=== PATIENT | female | born 1975 | race Two or more races ===

== ENCOUNTER → 2017-07-07 | Outpatient (REF) | payer OTHER ==
[2017-07-07 13:40] LABS: BASO # 0.1 10^3/uL (0.0-0.2); BASO % 0.6 % (0.0-1.0); EOS # 0.1 10^3/uL (0.0-0.50); EOS % 1.1 % (0.0-3.0); IMMATURE GRANULOCYTE % 0.2 % (0-0); LYMPH # 2.9 10^3/uL (1.5-4.5); LYMPH % 32.3 % (24.0-44.0); MEAN CORPUSCULAR HEMOGLOBIN 32.8 pg (27.0-33.0); MEAN CORPUSCULAR HGB CONC 33.2 g/dl (32.0-36.5); MEAN CORPUSCULAR VOLUME 98.9 fl (80.0-96.0); MONO # 0.6 10^3/uL (0.0-0.8); MONO % 6.6 % (0.0-5.0); NEUTROPHILS # 5.3 10^3/uL (1.8-7.7); NEUTROPHILS % 59.2 % (36.0-66.0); PLATELET COUNT, AUTOMATED 284 10^3/uL (150-450); RED CELL DISTRIBUTION WIDTH 12.4 % (11.5-14.5); WHITE BLOOD COUNT 8.9 10^3/uL (4.0-10.0)
[2017-07-07 14:07] LABS: ALBUMIN 4.4 GM/DL (3.2-5.2); ALBUMIN/GLOBULIN RATIO 1.33 (1.00-1.93); ALKALINE PHOSPHATASE 65 U/L (45-117); ALT/SGPT 64 U/L (12-78); ANION GAP 8 MEQ/L (8-16); AST/SGOT 40 U/L (7-37); BILIRUBIN,TOTAL 0.4 MG/DL (0.2-1.0); BLOOD UREA NITROGEN 15 MG/DL (7-18); CALCIUM LEVEL 9.2 MG/DL (8.5-10.1); CARBON DIOXIDE LEVEL 30 MEQ/L (21-32); CHLORIDE LEVEL 101 MEQ/L (98-107); CHOLESTEROL LEVEL 262 MG/DL (<200); CREATININE FOR GFR 0.63 MG/DL (0.55-1.02); GLOMERULAR FILTRATION RATE > 60.0 (>58); GLUCOSE, FASTING 79 MG/DL (70-105); POTASSIUM SERUM 4.4 MEQ/L (3.5-5.1); SODIUM LEVEL 139 MEQ/L (136-145); TOTAL PROTEIN 7.7 GM/DL (6.4-8.2); TRIGLYCERIDES LEVEL 153 MG/DL (<150)
== END ==
LOC: M SFHCADAM 11:06
PROVIDERS: ATTEND Family Medicine
DX: Z00.00 Encounter for general adult medical examination without abnormal findings (principal)

== ENCOUNTER → 2018-12-01 | Outpatient (REF) | payer OTHER ==
[2018-12-01 13:17] LABS: BASO # 0.1 10^3/uL (0.0-0.2); BASO % 0.5 % (0.0-1.0); EOS # 0.1 10^3/uL (0.0-0.50); EOS % 0.9 % (0.0-3.0); HEMATOCRIT 46.6 % (36.0-47.0); HEMOGLOBIN 15.4 g/dl (12.0-15.5); LYMPH # 2.8 10^3/uL (1.5-4.5); LYMPH % 24.6 % (24.0-44.0); MEAN CORPUSCULAR HEMOGLOBIN 33.1 pg (27.0-33.0); MEAN CORPUSCULAR VOLUME 100.2 fl (80.0-96.0); MONO # 0.7 10^3/uL (0.0-0.8); NEUTROPHILS # 7.6 10^3/uL (1.8-7.7); NEUTROPHILS % 67.6 % (36.0-66.0); PLATELET COUNT, AUTOMATED 319 10^3/uL (150-450); RED BLOOD COUNT 4.65 10^6/uL (4.00-5.40); WHITE BLOOD COUNT 11.2 10^3/uL (4.0-10.0)
[2018-12-01 13:46] LABS: ALBUMIN 4.2 GM/DL (3.2-5.2); ALT/SGPT 26 U/L (12-78); BILIRUBIN,TOTAL 0.5 MG/DL (0.2-1.0); BLOOD UREA NITROGEN 15 MG/DL (7-18); CALCIUM LEVEL 9.2 MG/DL (8.5-10.1); CARBON DIOXIDE LEVEL 29 MEQ/L (21-32); CHLORIDE LEVEL 103 MEQ/L (98-107); CHOLESTEROL LEVEL 248 MG/DL (<200); CHOLESTEROL RISK RATIO 3.061 (<5); CREATININE FOR GFR 0.74 MG/DL (0.55-1.30); FREE T4 1.07 NG/DL (0.76-1.46); GLOMERULAR FILTRATION RATE > 60.0 (>58); GLUCOSE, FASTING 100 MG/DL (70-100); HDL CHOLESTEROL 81 MG/DL (>40); LDL CHOLESTEROL 156 MG/DL (<100); NON-HDL-C 167 MG/DL; POTASSIUM SERUM 4.6 MEQ/L (3.5-5.1); SODIUM LEVEL 138 MEQ/L (136-145); THYROID STIMULATING HORMONE 0.498 uIU/ML (0.358-3.740); TOTAL PROTEIN 7.9 GM/DL (6.4-8.2); TRIGLYCERIDES LEVEL 54 MG/DL (<150)
== END ==
LOC: M SFHCADAM 09:13
PROVIDERS: ATTEND Family Medicine
DX: Z00.00 Encounter for general adult medical examination without abnormal findings (principal)

== ENCOUNTER → 2019-12-29 | Outpatient (CLI) | payer OTHER ==
[~2019-12-29] MED LIST: LOSA50TA88 PO; MULTCAP PO; NICO7DIS24 TD; QC F0.52 PO
== END ==
LOC: M LABSMTC 10:00
PROVIDERS: ATTEND Anesthesiology
DX: Z01.818 Encounter for other preprocedural examination (principal); Z11.59 Encounter for screening for other viral diseases
CPT/HCPCS: C9803; U0003

== ENCOUNTER 2020-01-01 06:25 | Day surgery (SDC) | payer OTHER ==
[~2020-01-01] VITALS: Ht 172.7 cm; Wt 74.8 kg
[~2020-01-01 06:25] MED LIST changes: +NS 1,000 ML IV ONE
[2020-01-01] MEDS ORDERED: LIDOCAINE 2% 100MG/5ML SDV (FOR ANES.) As Ordered ONE (07:34)
[2020-01-01] MEDS ORDERED: propofoL 500 MG/50 ML VIAL As Ordered ONE (07:34)
[2020-01-01 08:02] VITALS: BP 129/73
--- NOTE | 2020-01-01 08:14 | ROOR ---
Patient Name: Arleen Holder Procedure Date: 01/01/2020 7:32 AM Date of : 1975 Age: 44 Room: [facility] Gender: Female Note Status: Finalized Procedure: Colonoscopy Indications: Screening patient at increased risk: Family history of 1st-degree relative with colorectal cancer at age 60 years (or older) Providers: Abdoul Segovia MD Referring MD: Erum RODRIGUEZ DO Requesting Provider: Medicines: Monitored Anesthesia Care Complications: No immediate complications. Procedure: Pre-Anesthesia Assessment: - Prior to the procedure, a History and Physical was performed, and patient medications and allergies were reviewed. The patient is competent. The risks and benefits of the procedure and the sedation options and risks were discussed with the patient. All questions were answered and informed consent was obtained. Patient identification and proposed procedure were verified by the physician, the nurse and the anesthesiologist in the procedure room. Mental Status Examination: alert and oriented. Airway Examination: normal oropharyngeal airway and neck mobility. Respiratory Examination: clear to auscultation. CV Examination: normal. Prophylactic Antibiotics: The patient does not require prophylactic antibiotics. Prior Anticoagulants: The patient has taken no previous anticoagulant or antiplatelet agents. ASA Grade Assessment: II - A patient with mild systemic disease. After reviewing the risks and benefits, the patient was deemed in satisfactory condition to undergo the procedure. The anesthesia plan was to use monitored anesthesia care (MAC). Immediately prior to administration of medications, the patient was re-assessed for adequacy to receive sedatives. The heart rate, respiratory rate, oxygen saturations, blood pressure, adequacy of pulmonary ventilation, and response to care were monitored throughout the procedure. The physical status of the patient was re-assessed after the procedure. The Colonoscope was introduced through the anus and advanced to the terminal ileum, with identification of the appendiceal orifice and IC valve. The colonoscopy was performed without difficulty. The patient tolerated the procedure well. The quality of the bowel preparation was good. The terminal ileum, ileocecal valve, appendiceal orifice, and rectum were photographed. Scope insertion time was 4 minutes. Scope withdrawal time was 10 minutes. The total duration of the procedure was 14 minutes. Findings: Hemorrhoids were found on perianal exam. The terminal ileum appeared normal. Two sessile polyps were found in the ascending colon. The polyps were 5 to 6 mm in size. These polyps were removed with a cold snare. Resection and retrieval were complete. Verification of patient identification for the specimen was done by the physician and nurse using the patient's name, date and medical record number. Estimated blood loss was minimal. A 5 mm polyp was found in the recto-sigmoid colon. The polyp was sessile. The polyp was removed with a cold snare. Resection and retrieval were complete. Multiple small and large-mouthed diverticula were found from sigmoid to transverse colon. There was no evidence of diverticular bleeding. Non-bleeding external and internal hemorrhoids were found during retroflexion. The hemorrhoids were medium-sized. Impression: - Hemorrhoids found on perianal exam. - The examined portion of the ileum was normal. - Two 5 to 6 mm polyps in the ascending colon, removed with a cold snare. Resected and retrieved. - One 5 mm polyp at the recto-sigmoid colon, removed with a cold snare. Resected and retrieved. - Moderate diverticulosis from sigmoid to transverse colon. There was no evidence of diverticular bleeding. - Non-bleeding external and internal hemorrhoids. Recommendation: - Patient has a contact number available for emergencies. The signs and symptoms of potential delayed complications were discussed with the patient. Return to normal activities tomorrow. Written discharge instructions were provided to the patient. - High fiber diet. - Continue present medications. - Preparation H ointment: Apply externally daily for 5 days. - Use fiber, for example Citrucel, Fibercon, Konsyl or Metamucil. - Await pathology results. - Repeat colonoscopy in 3 - 5 years for surveillance based on pathology results. - Telephone GI clinic for pathology results in 2 weeks. - Return to primary care physician. Abdoul Segovia MD Abdoul Segovia MD 01/01/2020 8:13:46 AM Electronically signed by Abdoul Segovia MD Number of Addenda: 0 Note Initiated On: 01/01/2020 7:32 AM Estimated Blood Loss: Estimated blood loss was minimal.
== END 2020-01-01 08:32 | disposition home or self-care (01) ==
LOC: M OPP 06:25
PROVIDERS: ATTEND Internal Medicine Gastroenterology
DX: Z12.11 Encounter for screening for malignant neoplasm of colon (principal); Z80.0 Family history of malignant neoplasm of digestive organs; K63.5 Polyp of colon; K64.8 Other hemorrhoids; K57.30 Diverticulosis of large intestine without perforation or abscess without bleeding; I10 Essential (primary) hypertension; Z79.899 Other long term (current) drug therapy; F17.210 Nicotine dependence, cigarettes, uncomplicated

== ENCOUNTER → 2020-01-03 | Outpatient (REF) | payer OTHER ==
[~2020-01-03] MED LIST changes: -NS 1,000 ML IV ONE
[2020-01-03 11:37] LABS: FREE T4 1.13 NG/DL (0.76-1.46); THYROID STIMULATING HORMONE 0.582 uIU/ML (0.358-3.740)
[2020-01-03 13:39] LABS: HCG, SERUM QUALITATIVE NEGATIVE (NEGATIVE)
[2020-01-04 17:56] LABS: FOLLICLE STIMULATING HORMONE 1.8 mIU/mL; LUTEINIZING HORMONE 1.9 mIU/mL
== END ==
LOC: M PLALAB 09:31
PROVIDERS: ATTEND Advanced Practice Midwife
DX: N92.6 Irregular menstruation, unspecified (principal)

== ENCOUNTER → 2020-01-23 | Outpatient (CLI) | payer OTHER ==
--- NOTE | 2020-01-23 17:30 | REPMRS ---
Patient History The patient states she had a clinical breast exam in December 2019. Patient is nulliparous. Family history of breast cancer at age 45 in paternal aunt, ovarian cancer at age 40 and colorectal cancer at age 60 in mother. 3D TOMOSYNTHESIS WAS PERFORMED. The [facility] lifetime risk for breast cancer is 19.6%. VOLPARA DERIAN B. Digital Woman Screen Mammo: January 23, 2020 - Exam #: [id number] Bilateral CC and MLO view(s) were taken. Technologist: Tamia Eduardo, Technologist No prior studies available for comparison. FINDINGS: The breast tissue is heterogeneously dense. This may lower the sensitivity of mammography. There is a moderate amount of residual fibroglandular tissue which is fairly symmetric. There is no dominant mass, areas of architectural distortion, or clustered microcalcification typical of malignancy. Assessment: BI-RADS/ACR category 1 mammogram. Negative Mammogram. Recommendation Routine screening mammogram in 1 year (for women over age 40). This mammogram was interpreted with the aid of an FDA-approved computer-aided dectection system. Electronically Signed By: Rivera Moreland MD 01/23/20 [id number]
--- NOTE | 2020-01-24 06:01 | REP ---
REASON: Metrorrhagia. PRIORS: None. Transvesical imaging only was obtained. The lack of transvaginal imaging is unknown to me. The uterus measures 8.6 x 3.1 x 5.2 cm. The parenchymal echo pattern is normal. The endometrial echo complex is smooth and unremarkable appearing, measuring 1.1 cm in its greatest thickness. There is no free fluid in the cul-de-sac. Right ovary measures 2.7 x 1.2 x 2.2 cm and is within normal limits. Left ovary measures 2.9 x 1.8 x 1.8 cm and is within normal limits. Urinary bladder measures 13 x 8 x 10 cm. IMPRESSION: Normal pelvic ultrasound.
== END ==
LOC: M WHC 14:55
PROVIDERS: ATTEND Advanced Practice Midwife
DX: Z12.31 Encounter for screening mammogram for malignant neoplasm of breast (principal); N92.6 Irregular menstruation, unspecified; Z80.41 Family history of malignant neoplasm of ovary

== ENCOUNTER → 2020-09-03 | Outpatient (REF) | payer OTHER ==
[2020-09-03 13:46] LABS: CHOLESTEROL RISK RATIO 3.12 (<5)
== END ==
LOC: M SFHCADAM 10:54
PROVIDERS: ATTEND Family Medicine
DX: Z00.00 Encounter for general adult medical examination without abnormal findings (principal)

== ENCOUNTER → 2021-05-08 | Outpatient (CLI) | payer OTHER | LOC: M PLARAD 07:41 | PROVIDERS: ATTEND Family Medicine | DX: R51.9 Headache, unspecified (principal); Z53.9 Procedure and treatment not carried out, unspecified reason ==

== ENCOUNTER → 2021-06-07 | Outpatient (CLI) | payer OTHER ==
[2021-06-07 12:50] LABS: BASO # 0.1 10^3/uL (0.0-0.2); BASO % 0.5 % (0.0-1.0); EOS # 0.1 10^3/uL (0.0-0.5); EOS % 0.7 % (0.0-3.0); HEMATOCRIT 48.8 % (36.0-47.0); HEMOGLOBIN 15.9 g/dl (12.0-15.5); LYMPH # 2.6 10^3/uL (1.5-5.0); LYMPH % 26.3 % (24.0-44.0); MEAN CORPUSCULAR HEMOGLOBIN 32.1 pg (27.0-33.0); MEAN CORPUSCULAR HGB CONC 32.6 g/dl (32.0-36.5); MEAN CORPUSCULAR VOLUME 98.4 fl (80.0-96.0); MONO # 0.7 10^3/uL (0.0-0.8); MONO % 6.9 % (2.0-8.0); NEUTROPHILS # 6.5 10^3/uL (1.5-8.5); NEUTROPHILS % 65.3 % (36.0-66.0); PLATELET COUNT, AUTOMATED 253 10^3/uL (150-450); RED BLOOD COUNT 4.96 10^6/uL (4.00-5.40)
[2021-06-07 13:31] LABS: ALBUMIN 4.4 GM/DL (3.2-5.2); ALT/SGPT 32 U/L (12-78); BILIRUBIN,TOTAL 0.8 MG/DL (0.2-1.0); BLOOD UREA NITROGEN 14 MG/DL (7-18); CARBON DIOXIDE LEVEL 30 MEQ/L (21-32); CHLORIDE LEVEL 101 MEQ/L (98-107); CHOLESTEROL LEVEL 253 MG/DL (<200); CHOLESTEROL RISK RATIO 2.842 (<5); CREATININE FOR GFR 0.91 MG/DL (0.55-1.30); GLOMERULAR FILTRATION RATE > 60.0 (>58); GLUCOSE, FASTING 100 MG/DL (70-100); HDL CHOLESTEROL 89 MG/DL (>40); LDL CHOLESTEROL 137 MG/DL (<100); NON-HDL-C 164 MG/DL; POTASSIUM SERUM 4.1 MEQ/L (3.5-5.1); SODIUM LEVEL 137 MEQ/L (136-145); TOTAL PROTEIN 7.9 GM/DL (6.4-8.2); TRIGLYCERIDES LEVEL 134 MG/DL (<150)
== END ==
LOC: M LAB 12:28
PROVIDERS: ATTEND Family Medicine
DX: Z00.00 Encounter for general adult medical examination without abnormal findings (principal); E78.2 Mixed hyperlipidemia

== ENCOUNTER → 2021-06-08 | Outpatient (CLI) | payer OTHER ==
[~2021-06-08] MED LIST changes: +PROHANCE 279.3MG/ML 15ML VIAL ONE
--- NOTE | 2021-06-08 17:24 | REPVR ---
PROCEDURE INFORMATION: Exam: MR Head Without and With Contrast Exam date and time: 06/08/2021 2:12 PM Age: 46 years old Clinical indication: Pain; Headache; Additional info: Acute [place]'s TECHNIQUE: Imaging protocol: MR of the head without and with intravenous contrast. Contrast material: PROHANCE; Contrast volume: 14 ml; Contrast route: INTRAVENOUS (IV); COMPARISON: No relevant prior studies available. FINDINGS: Brain: No intracranial hemorrhage or extra-axial fluid collection. No evidence of mass effect or midline shift. No white matter abnormalities. No restricted diffusion to suggest acute infarct. No abnormal intracranial enhancement. Nonspecific mild prominence of the pituitary gland. Cerebral ventricles: Ventricles, cisterns, and sulci are normal. Bones/joints: Unremarkable. Paranasal sinuses: Normal as visualized. No acute sinusitis. Mastoid air cells: No mastoid effusion. Orbital cavity: Unremarkable. Soft tissues: Unremarkable. IMPRESSION: 1. No acute intracranial findings. 2. Nonspecific mild prominence of the pituitary gland. This can be further evaluated with MRI brain with and without contrast using pituitary mass protocol, if clinically indicated. Electronically signed by: Kaushik Ku On 06/08/2021 17:23:52 PM
== END ==
LOC: M PLAIMG 13:10
PROVIDERS: ATTEND Family Medicine
DX: R51.9 Headache, unspecified (principal); E23.7 Disorder of pituitary gland, unspecified

== ENCOUNTER → 2021-07-20 | Outpatient (CLI) | payer OTHER ==
[~2021-07-20] MED LIST changes: -PROHANCE 279.3MG/ML 15ML VIAL ONE
[2021-07-21 10:08] LABS: ANTINUCLEAR ANTIBODIES DIRECT Negative (Negative)
== END ==
LOC: M PLALAB 11:03
PROVIDERS: ATTEND Psychiatry & Neurology Neurology
DX: R51.9 Headache, unspecified (principal)

== ENCOUNTER → 2022-11-08 | Outpatient (REF) | payer OTHER ==
[~2022-11-08] MED LIST changes: +LOSA50TA28 PO; -LOSA50TA88 PO
[2022-11-08 13:34] LABS: BASO # 0.1 10^3/uL (0.0-0.2); BASO % 0.5 % (0.0-1.0); EOS # 0.1 10^3/uL (0.0-0.5); EOS % 0.8 % (0.0-3.0); HEMATOCRIT 46.3 % (36.0-47.0); HEMOGLOBIN 15.2 g/dl (12.0-15.5); LYMPH # 2.7 10^3/uL (1.5-5.0); MEAN CORPUSCULAR HEMOGLOBIN 32.8 pg (27.0-33.0); MEAN CORPUSCULAR HGB CONC 32.8 g/dl (32.0-36.5); MEAN CORPUSCULAR VOLUME 99.8 fl (80.0-96.0); MONO # 0.7 10^3/uL (0.0-0.8); MONO % 6.2 % (2.0-8.0); NEUTROPHILS # 7.5 10^3/uL (1.5-8.5); NEUTROPHILS % 68.1 % (36.0-66.0); PLATELET COUNT, AUTOMATED 281 10^3/uL (150-450); RED BLOOD COUNT 4.64 10^6/uL (4.00-5.40)
[2022-11-08 13:59] LABS: THYROID STIMULATING HORMONE 0.522 uIU/ML (0.55-4.78)
[2022-11-08 14:00] LABS: ALBUMIN 3.9 G/DL (3.2-5.2); ALKALINE PHOSPHATASE 76 U/L (46-116); ALT/SGPT < 9 U/L (7.0-40); AST/SGOT 23 U/L (<34); BILIRUBIN,TOTAL 0.4 MG/DL (0.3-1.2); BLOOD UREA NITROGEN 17 MG/DL (9-23); CALCIUM LEVEL 9.2 MG/DL (8.5-10.1); CARBON DIOXIDE LEVEL 28 MMOL/L (20-31); CHLORIDE LEVEL 103 MMOL/L (98-107); CHOLESTEROL LEVEL 234 MG/DL (<200); CHOLESTEROL RISK RATIO 2.68 (<5); CREATININE FOR GFR 0.73 MG/DL (0.55-1.30); GLOMERULAR FILTRATION RATE > 60.0 (>58); GLUCOSE, FASTING 78 MG/DL (60-100); HDL CHOLESTEROL 87.2 MG/DL (>40); LDL CHOLESTEROL 129.6 MG/DL (<100); NON-HDL-C 146.8 MG/DL; POTASSIUM SERUM 4.1 MMOL/L (3.5-5.1); SODIUM LEVEL 139 MMOL/L (136-145); TOTAL PROTEIN 6.9 G/DL (5.7-8.2); TRIGLYCERIDES LEVEL 86 MG/DL (<150)
== END ==
LOC: M SFHCADAM 11:12
PROVIDERS: ATTEND Family Medicine
DX: Z00.00 Encounter for general adult medical examination without abnormal findings (principal); Z86.39 Personal history of other endocrine, nutritional and metabolic disease; E23.7 Disorder of pituitary gland, unspecified

== ENCOUNTER → 2023-06-21 | Outpatient (REF) | payer OTHER ==
[2023-06-21 14:53] LABS: FREE T4 1.23 NG/DL (0.89-1.76); THYROID STIMULATING HORMONE 0.462 uIU/ML (0.55-4.78)
== END ==
LOC: M SFHCADAM 09:11
PROVIDERS: ATTEND Family Medicine
DX: R53.83 Other fatigue (principal)

== ENCOUNTER → 2023-06-24 | Outpatient (REF) | payer OTHER | LOC: M SFHCADAM 09:36 | PROVIDERS: ATTEND Family Medicine | DX: E05.90 Thyrotoxicosis, unspecified without thyrotoxic crisis or storm (principal) ==

== ENCOUNTER → 2023-06-24 | Outpatient (CLI) | payer OTHER | LOC: M RAD 10:13 | PROVIDERS: ATTEND Family Medicine | DX: E05.20 Thyrotoxicosis with toxic multinodular goiter without thyrotoxic crisis or storm (principal) ==

== ENCOUNTER → 2023-08-22 | Outpatient (REF) | payer BC ==
[~2023-08-22] MED LIST changes: +THERTAB52 PO
== END ==
LOC: M SFHCWAGY 13:15
PROVIDERS: ATTEND Nurse Practitioner Family
DX: Z12.4 Encounter for screening for malignant neoplasm of cervix (principal)
CPT/HCPCS: 87624; G0123

== ENCOUNTER → 2023-08-22 | Outpatient (CLI) | payer BC | LOC: M WHC 10:38 | PROVIDERS: ATTEND Family Medicine | DX: Z12.31 Encounter for screening mammogram for malignant neoplasm of breast (principal); R92.323 Mammographic fibroglandular density, bilateral breasts ==

== ENCOUNTER 2023-09-06 08:38 | Day surgery (SDC) | payer BC ==
[~2023-09-06] VITALS: Ht 172.7 cm; Wt 73.4 kg
[2023-09-06] MEDS: NS 1,000 ML IV ONE (08:52)
[2023-09-06] MEDS ORDERED: propofoL 200 MG/20 ML VIAL As Ordered ONE (09:44)
[2023-09-06] MEDS ORDERED: LIDOCAINE 2% 100MG/5ML SDV (FOR ANES.) As Ordered ONE (09:46)
[2023-09-06 10:08] VITALS: TEMP 97.3
[2023-09-06 10:30] VITALS: BP 147/83; O2SAT 100
== END 2023-09-06 10:40 | disposition home or self-care (01) ==
LOC: M OPP 08:38
PROVIDERS: ATTEND Internal Medicine Gastroenterology
DX: Z12.11 Encounter for screening for malignant neoplasm of colon (principal); Z86.010 Personal history of colon polyps; Z80.0 Family history of malignant neoplasm of digestive organs; D12.6 Benign neoplasm of colon, unspecified; K57.30 Diverticulosis of large intestine without perforation or abscess without bleeding; K64.4 Residual hemorrhoidal skin tags; K64.8 Other hemorrhoids; F17.210 Nicotine dependence, cigarettes, uncomplicated; Z79.899 Other long term (current) drug therapy

== ENCOUNTER 2024-07-03 16:12 | Emergency (ER) | payer BC ==
[~2024-07-03] VITALS: Ht 172.7 cm; Wt 72.6 kg
[2024-07-03 16:14] VITALS: TEMP 98.1
[2024-07-03 18:02] LABS: BASO % 0.4 % (0.0-1.0); EOS # 0.1 10^3/uL (0.0-0.5); EOS % 0.9 % (0.0-3.0); HEMATOCRIT 47.4 % (36.0-47.0); HEMOGLOBIN 15.8 g/dl (12.0-15.5); LYMPH # 3.3 10^3/uL (1.5-5.0); LYMPH % 33.7 % (24.0-44.0); MEAN CORPUSCULAR HEMOGLOBIN 33.2 pg (27.0-33.0); MEAN CORPUSCULAR HGB CONC 33.3 g/dl (32.0-36.5); MEAN CORPUSCULAR VOLUME 99.6 fl (80.0-96.0); MONO # 0.7 10^3/uL (0.0-0.8); MONO % 7.5 % (2.0-8.0); NEUTROPHILS # 5.7 10^3/uL (1.5-8.5); NEUTROPHILS % 57.3 % (36.0-66.0); PLATELET COUNT, AUTOMATED 264 10^3/uL (150-450); RED BLOOD COUNT 4.76 10^6/uL (4.00-5.40); WHITE BLOOD COUNT 9.9 10^3/uL (4.0-10.0)
[2024-07-03 18:36] LABS: BLOOD UREA NITROGEN 15 MG/DL (9-23); CALCIUM LEVEL 10.6 MG/DL (8.5-10.1); CARBON DIOXIDE LEVEL 30 MMOL/L (20-31); CHLORIDE LEVEL 101 MMOL/L (98-107); CK-MB VALUE MASS < 1.0 NG/ML (<3.6); CREATININE FOR GFR 0.85 MG/DL (0.55-1.30); GLOMERULAR FILTRATION RATE > 60.0 (>51); GLUCOSE, FASTING 89 MG/DL (60-100); POTASSIUM SERUM 4.2 MMOL/L (3.5-5.1); SODIUM LEVEL 140 MMOL/L (136-145)
[2024-07-03 18:39] LABS: CPK CREATINE PHOSPHOKINASE 119 U/L (34-145); MB/CK RELATIVE INDEX 0.84 (< OR =4)
[2024-07-03 19:24] LABS: CK-MB VALUE MASS < 1.0 NG/ML (<3.6)
[2024-07-03 19:27] LABS: CPK CREATINE PHOSPHOKINASE 99 U/L (34-145); MB/CK RELATIVE INDEX 1.01 (< OR =4)
[2024-07-03] MEDS ORDERED: ISOVUE-370 76% 100ML VIAL As Ordered ONE (21:04)
[2024-07-03 22:30] VITALS: BP 166/98; O2SAT 99
== END 2024-07-03 23:20 | disposition left against medical advice (07) ==
LOC: M ED 16:12
DX: R07.9 Chest pain, unspecified (principal); I10 Essential (primary) hypertension; F17.200 Nicotine dependence, unspecified, uncomplicated; Z79.811 Long term (current) use of aromatase inhibitors; Z79.899 Other long term (current) drug therapy; Z53.9 Procedure and treatment not carried out, unspecified reason
CPT/HCPCS: 36415; 71045; 71275; 80048; 82550; 82553; 84484; 85025; 93005; 93041; 94760; 99285; Q9967

== ENCOUNTER → 2024-08-09 | Outpatient (REF) | payer BC | LOC: M LAB REF 18:25 | PROVIDERS: ATTEND Internal Medicine Endocrinology, Diabetes & Metabolism | DX: R94.6 Abnormal results of thyroid function studies (principal) ==

== ENCOUNTER → 2024-08-09 | Outpatient (REF) | payer BC ==
[2024-08-09 18:34] LABS: BASO # 0.1 10^3/uL (0.0-0.2); BASO % 0.5 % (0.0-1.0); EOS # 0.1 10^3/uL (0.0-0.5); EOS % 1.1 % (0.0-3.0); HEMATOCRIT 49.8 % (36.0-47.0); HEMOGLOBIN 16.2 g/dl (12.0-15.5); LYMPH # 3.8 10^3/uL (1.5-5.0); LYMPH % 39.8 % (24.0-44.0); MEAN CORPUSCULAR HEMOGLOBIN 33.1 pg (27.0-33.0); MEAN CORPUSCULAR HGB CONC 32.5 g/dl (32.0-36.5); MEAN CORPUSCULAR VOLUME 101.8 fl (80.0-96.0); MONO # 0.7 10^3/uL (0.0-0.8); NEUTROPHILS # 4.9 10^3/uL (1.5-8.5); NEUTROPHILS % 51.4 % (36.0-66.0); PLATELET COUNT, AUTOMATED 270 10^3/uL (150-450); RED BLOOD COUNT 4.89 10^6/uL (4.00-5.40); WHITE BLOOD COUNT 9.5 10^3/uL (4.0-10.0)
[2024-08-09 18:39] LABS: ALBUMIN 4.2 G/DL (3.2-5.2); ALKALINE PHOSPHATASE 82 U/L (35-104); ALT/SGPT 24 U/L (7.0-40); AST/SGOT 21 U/L (<34); BILIRUBIN,TOTAL 0.4 MG/DL (0.3-1.2); BLOOD UREA NITROGEN 17 MG/DL (9-23); CALCIUM LEVEL 10.2 MG/DL (8.5-10.1); CARBON DIOXIDE LEVEL 31 MMOL/L (20-31); CHLORIDE LEVEL 103 MMOL/L (98-107); CHOLESTEROL LEVEL 266 MG/DL (<200); CHOLESTEROL RISK RATIO 2.77 (<5); GLOMERULAR FILTRATION RATE > 60.0 (>51); GLUCOSE, FASTING 88 MG/DL (60-100); HDL CHOLESTEROL 95.9 MG/DL (>40); LDL CHOLESTEROL 138.3 MG/DL (<100); NON-HDL-C 170.1 MG/DL; POTASSIUM SERUM 4.7 MMOL/L (3.5-5.1); SODIUM LEVEL 142 MMOL/L (136-145); TOTAL PROTEIN 7.8 G/DL (5.7-8.2); TRIGLYCERIDES LEVEL 159 MG/DL (<150)
== END ==
LOC: M SFHCADAM 14:38
PROVIDERS: ATTEND Family Medicine
DX: Z00.00 Encounter for general adult medical examination without abnormal findings (principal)

== ENCOUNTER → 2024-08-23 | Outpatient (CLI) | payer BC | LOC: M WHC 09:49 | PROVIDERS: ATTEND Nurse Practitioner Family | DX: Z12.31 Encounter for screening mammogram for malignant neoplasm of breast (principal); R92.323 Mammographic fibroglandular density, bilateral breasts ==

== ENCOUNTER → 2024-08-23 | Outpatient (CLI) | payer BC ==
[2024-08-23 15:37] LABS: Trichomonas vaginalis (AMP) NOT DETECTED (NEGATIVE)
[2024-08-23 15:42] LABS: HEPATITIS B SURFACE ANTIGEN NEGATIVE (NEGATIVE)
[2024-08-23 15:55] LABS: HIV 1&2 SCREEN NEGATIVE (NEGATIVE)
[2024-08-23 16:01] LABS: GC DNA AMPLIFICATION NEGATIVE (NEGATIVE)
[2024-08-23 16:02] LABS: HEPATITIS B CORE ANTIBODY IGM NEGATIVE (NEGATIVE); HEPATITIS C VIRUS ABY INDEX 0.14 INDEX (<0.8)
== END ==
LOC: M PLALAB 11:07
PROVIDERS: ATTEND Nurse Practitioner Family
DX: Z11.3 Encounter for screening for infections with a predominantly sexual mode of transmission (principal)

== ENCOUNTER → 2025-01-23 | Outpatient (CLI) | payer BC ==
[2025-01-23 14:05] LABS: ALT/SGPT 30 U/L (7.0-40); AST/SGOT 34 U/L (<34); BASO # 0.1 10^3/uL (0.0-0.2); BASO % 0.8 % (0.0-1.0); CALCIUM LEVEL 10.0 MG/DL (8.5-10.1); CARBON DIOXIDE LEVEL 29 MMOL/L (20-31); CHLORIDE LEVEL 102 MMOL/L (98-107); CHOLESTEROL LEVEL 243 MG/DL (<200); CHOLESTEROL RISK RATIO 2.81 (<5); CREATININE FOR GFR 0.76 MG/DL (0.55-1.30); EOS # 0.2 10^3/uL (0.0-0.5); EOS % 1.5 % (0.0-3.0); GLOMERULAR FILTRATION RATE > 90.0 (>51); LDL CHOLESTEROL 135.0 MG/DL (<100); LYMPH # 3.1 10^3/uL (1.5-5.0); LYMPH % 30.5 % (24.0-44.0); MONO # 1.0 10^3/uL (0.0-0.8); MONO % 10.2 % (2.0-8.0); NEUTROPHILS # 5.7 10^3/uL (1.5-8.5); NEUTROPHILS % 56.5 % (36.0-66.0); NON-HDL-C 156.6 MG/DL; PLATELET COUNT, AUTOMATED 302 10^3/uL (150-450); POTASSIUM SERUM 5.2 MMOL/L (3.5-5.1); SODIUM LEVEL 141 MMOL/L (136-145); TRIGLYCERIDES LEVEL 108 MG/DL (<150)
== END ==
LOC: M PLALAB 10:54
PROVIDERS: ATTEND Family Medicine
DX: Z00.00 Encounter for general adult medical examination without abnormal findings (principal)